=== PATIENT | female | born 1950 | race Caucasian/White ===

== ENCOUNTER → 2023-06-07 | Outpatient (CLI) | payer MEDICARE, BC ==
--- NOTE | 2023-06-07 18:56 | MR ---
EXAMINATION TYPE: MR brain wo/w con DATE OF EXAM: 06/07/2023 4:25 PM CLINICAL INDICATION:Female, 72 years old with history of R90.89 ABNORMAL FINDINGS ON DIAGNOSTIC IMAGI NG, F/U, abnormal prior MRI, brain lesions COMPARISON: 03/15/2023 TECHNIQUE: Multi planar, multi sequence imaging was performed through the brain including: T1, T2, In version recovery, susceptibility weighted imaging and gradient echo imaging and Diffusion weighted im aging. The patient was then given intravenous contrast and multi planar, T1 fat-saturation images wer e obtained. IV Contrast: 5.5 cc Gadavist FINDINGS: No enhancing masses are visualized. Area of enhancement seen on prior on the right temporal lobe is n o longer visualized. No evidence for restricted diffusion within this region. There is some increased FLAIR signal now within this region best appreciated on sagittal imaging series 701 image 27. Scatte red white matter changes throughout remainder of the deep white matter is also present. Cerebral atrophy with proportional dilation of ventricles. Diffusion-weighted imaging shows no eviden ce of restricted diffusion to suggest acute/subacute infarct. Intracranial arterial flow voids are ma intained. Midline structures show no abnormality. Scattered foci of high T2 signal intensity are seen within the periventricular white matter. The susceptibility weighted images do not reveal any eviden ce for micro-hemorrhage. After administration of gadolinium, no abnormal enhancement is seen. The bone marrow signal is within normal limits. Paranasal sinuses and mastoid air cells: No significant paranasal sinus disease. Visualized orbits: Orbital contents are intact. IMPRESSION: Area of enhancement seen on prior imaging in the right temporal lobe is no longer visualized there is white matter change now within this region on FLAIR sequences suggesting demyelination on prior. No active demyelination on today's exam. No restricted diffusion to suggest acute/subacute CVA or abnorm al postcontrast enhancement.
== END | disposition home or self-care (01) ==
LOC: RADMRIMAIN 15:36
PROVIDERS: ATTEND Psychiatry & Neurology Neurology
DX: R90.89 Other abnormal findings on diagnostic imaging of central nervous system (principal)
CPT/HCPCS: 70553; A9585